=== PATIENT | male | born 1950 | race Caucasian/White ===

== ENCOUNTER 2018-11-18 08:45 | Day surgery (SDC) ==
[2018-11-18] MEDS: BETADINE OPTH PREP OP PRN ×2 (09:17→10:05)
[2018-11-18] MEDS: TETRACAINE 0.5% UNIT-DOSE OP PRN ×2 (09:17→10:05)
[2018-11-18] MEDS: CYCLOGYL 2% OPTH OP PRN ×3 (09:18→09:28)
[2018-11-18] MEDS ORDERED: LIDOCAINE 1% 20 ML MDV ID STA (09:28)
[2018-11-18] MEDS ORDERED: ZOFRAN 4 MG/2 ML IVP ONE (09:28)
[2018-11-18] MEDS ORDERED: VERSED ONE (10:07)
[2018-11-18] MEDS ORDERED: ZOFRAN 4 MG/2 ML ONE (10:07)
[2018-11-18] MEDS ORDERED: SUBLIMAZE ONE (10:07)
[2018-11-18] MEDS: DEX-MOXI-KETOR OPTH INJ 1/0.5/0.4 MG/ML IO ONE ×2 (10:19→10:20)
[2018-11-18] MEDS: LIDOCAINE 1%/PHENYLEPHRINE 1.5% BSS (SURGERY) INTRAOCULA ONE ×2 (10:19→10:20)
[2018-11-18] MEDS: BSS WITH EPINEPHRINE OP ONE ×2 (10:19→10:20)
[2018-11-18 14:09] VITALS: BP 158/98; TEMP 97.4
== END 2018-11-18 11:05 | disposition home or self-care (01) ==
LOC: SURG 08:45
PROVIDERS: ATTEND Ophthalmology
DX: H25.12 Age-related nuclear cataract, left eye (principal)